=== PATIENT | female | born 1980 | race Caucasian/White ===

== ENCOUNTER 2018-04-22 16:05 | Emergency (ER) | payer MEDICAID ==
[~2018-04-22] VITALS: Ht 157.5 cm; Wt 46.6 kg
[~2018-04-22 16:05] MED LIST: LORA1TAB PO
[2018-04-22 16:33] VITALS: BP 112/71
[2018-04-22] MEDS ORDERED: HYDR-3686 PO (17:37)
== END 2018-04-22 17:44 | disposition home or self-care (01) ==
LOC: ER 16:06
DX: F41.0 Panic disorder [episodic paroxysmal anxiety] (principal); Z90.49 Acquired absence of other specified parts of digestive tract; Z90.710 Acquired absence of both cervix and uterus; Z88.5 Allergy status to narcotic agent; Z79.899 Other long term (current) drug therapy; Z60.2 Problems related to living alone
CPT/HCPCS: 99284

== ENCOUNTER 2020-03-19 22:50 | Emergency (ER) | payer MEDICAID ==
[~2020-03-19] VITALS: Ht 157.5 cm; Wt 50.0 kg
[2020-03-19 23:12] VITALS: BP 112/80
[2020-03-19] MEDS ORDERED: PENI500T2 PO (23:28)
== END 2020-03-19 23:41 | disposition home or self-care (01) ==
LOC: ER 22:51
DX: K08.89 Other specified disorders of teeth and supporting structures (principal); R59.0 Localized enlarged lymph nodes; F41.9 Anxiety disorder, unspecified; R53.83 Other fatigue; R22.0 Localized swelling, mass and lump, head; Z86.69 Personal history of other diseases of the nervous system and sense organs; Z90.49 Acquired absence of other specified parts of digestive tract; Z90.710 Acquired absence of both cervix and uterus; Z72.89 Other problems related to lifestyle; Z88.5 Allergy status to narcotic agent; Z79.899 Other long term (current) drug therapy
CPT/HCPCS: 99283

== ENCOUNTER 2020-04-14 15:09 | Emergency (ER) | payer MEDICAID ==
[~2020-04-14] VITALS: Ht 157.5 cm; Wt 44.0 kg
[~2020-04-14 15:09] MED LIST changes: +PENI500T2 PO
[2020-04-14] MEDS ORDERED: PENI250T2 PO (15:57)
[2020-04-14] MEDS ORDERED: NAPR-56 PO (15:57)
[2020-04-14 16:03] VITALS: BP 108/78
== END 2020-04-14 16:04 | disposition home or self-care (01) ==
LOC: ER 15:09
DX: K08.89 Other specified disorders of teeth and supporting structures (principal); F41.9 Anxiety disorder, unspecified; Z88.5 Allergy status to narcotic agent; Z79.899 Other long term (current) drug therapy; Z86.69 Personal history of other diseases of the nervous system and sense organs; Z90.49 Acquired absence of other specified parts of digestive tract; Z90.710 Acquired absence of both cervix and uterus; Z72.89 Other problems related to lifestyle
CPT/HCPCS: 99283